=== PATIENT | male | born 1990 | race Two or more races ===

== ENCOUNTER 2018-10-18 07:03 | Emergency (ER) | payer BC, MEDICAID ==
[~2018-10-18] VITALS: Ht 180.3 cm; Wt 127.0 kg
[2018-10-18 07:28] VITALS: BP 129/77
[2018-10-18] MEDS ORDERED: KETOROLAC TROMETH 30 MG/ML 1ML VIAL IV ONE (07:30)
== END 2018-10-18 08:50 | disposition home or self-care (01) ==
LOC: EDBD 07:03 → ER 07:03
DX: S76.012A Strain of muscle, fascia and tendon of left hip, initial encounter (principal); S76.011A Strain of muscle, fascia and tendon of right hip, initial encounter; S00.12XA Contusion of left eyelid and periocular area, initial encounter; S00.01XA Abrasion of scalp, initial encounter; V43.52XA Car driver injured in collision with other type car in traffic accident, initial encounter; Y93.89 Activity, other specified; Y99.8 Other external cause status; Y92.410 Unspecified street and highway as the place of occurrence of the external cause
CPT/HCPCS: 70450; 73502; 96374; 99284; J1885